=== PATIENT | male | born 1955 | race Caucasian/White ===

== ENCOUNTER 2021-02-27 16:32 | Outpatient (CLI) | payer MEDICARE, OTHER | END 2021-02-27 16:33 | disposition home or self-care (01) | LOC: RAD 16:32 | DX: K51.813 Other ulcerative colitis with fistula (principal); K60.3 Anal fistula | CPT/HCPCS: 36415; 71046; 86480; 86704; 86803; 87340 ==

== ENCOUNTER 2023-04-28 08:59 | Outpatient (CLI) | payer MEDICARE, OTHER ==
[2023-04-28] MEDS ORDERED: Iopamidol 370 76% 100 ML VIAL ONE (11:11)
== END 2023-04-28 09:00 | disposition home or self-care (01) ==
LOC: CT 08:59
PROVIDERS: ATTEND Surgery
DX: D16.9 Benign neoplasm of bone and articular cartilage, unspecified (principal); K59.00 Constipation, unspecified; M41.9 Scoliosis, unspecified; K62.89 Other specified diseases of anus and rectum; M47.9 Spondylosis, unspecified
CPT/HCPCS: 71260; 74177; 82565; Q9967

== ENCOUNTER 2025-03-09 07:47 | Inpatient (IN) | payer MEDICARE, OTHER ==
[2025-03-09 08:35] LABS: #Basophils Less than 0.03 10x3/uL (0.0-0.2); #Eosinophils Less than 0.03 10x3/uL (0.0-0.7); #Monocytes 0.35 10x3/uL (0.11-0.59); #Neutrophils 5.42 10x3/uL (1.40-6.50); %Basophils 0.3 % (0.0-1.0); %Eosinophils 0.0 % (0.0-10.0); %Lymphocytes 5.3 % (21.0-51.0); %Monocytes 5.7 % (0.0-10.0); %Neutrophils 87.7 % (42.0-75.0); Hematocrit 44.1 % (42.0-52.0); Hemoglobin 15.1 g/dL (14.0-18.0); Mean Corpuscular Hemoglobin 29.6 pg (27.0-31.0); Mean Corpuscular Volume 86.5 fL (78.0-98.0); Platelet Count 72 10x3/uL (130-400); Red Blood Cell (RBC) Count 5.10 mill/uL (4.70-6.10); White Blood Cell (WBC) Count 6.18 10x3/uL (4.8-10.8)
[2025-03-09 08:46] LABS: ALT (SGPT) 34 U/L (Less than 45); AST (SGOT) 52 U/L (11-34); Albumin 3.0 g/dL (3.1-4.5); Alkaline Phosphatase 99 U/L (40-110); Anion Gap 15 mmol/L (10-20); BUN (Urea Nitrogen) 15 mg/dL (8.4-25.7); Bilirubin, Total 1.2 mg/dL (0.3-1.2); Calc. Creatinine Clearance 0 mL/min (70-130); Calcium 8.8 mg/dL (7.8-10.44); Carbon Dioxide 24 mmol/L (23-31); Chloride 99 mmol/L (98-107); Globulin 3.7 g/dL (2.4-3.5); Glucose 125 mg/dL (83-110); Magnesium 1.9 mg/dL (1.6-2.6); Potassium 4.3 mmol/L (3.5-5.1); Sodium 134 mmol/L (136-145)
[2025-03-09] MEDS ORDERED: Ondansetron PF 4 MG/2 ML Vial ONE (08:46)
[2025-03-09] MEDS ORDERED: Cefepime 2 GM VIAL ONE (08:47)
[2025-03-09] MEDS ORDERED: Aspirin Chewable 81 MG TAB ONE (08:47)
[2025-03-09] MEDS ORDERED: Acetaminophen 500 MG TAB ONE ×2 (09:17)
[2025-03-09 09:40] LABS: Anisocytosis SLIGHT = 6-15 cells HPF (0-5); Burr Cells SLIGHT = 2-5 cells HPF (0-1); Macrocytosis SLIGHT = 6-15 cells HPF (0-5); Platelet Adequacy Comment Platelets Decreased; Poikilocytosis MARKED = >30 cells HPF (0-5); Polychromasia SLIGHT = 2-3 cells HPF (0-2); Schistocytes SLIGHT = 2-5 cells HPF (0-1); Stomatocytes SLIGHT = 2-5 cells HPF (0-1)
[2025-03-09] MEDS ORDERED: Ondansetron PF 4 MG/2 ML Vial IVP PRN (10:49)
[2025-03-09] MEDS ORDERED: Acetaminophen 325 MG TAB PO PRN (10:49)
[2025-03-09 12:31] VITALS: BMI 23.3
[2025-03-09] MEDS ORDERED: Iopamidol-370 76% 500 ML MDV (1 ML CHARGE) ONE (13:11)
[2025-03-09] MEDS: VANCOMYCIN 1.75 GM/350 ML Premix BAG IVPB SCH (13:13)
[2025-03-09] MEDS: Vancomycin 1 GM in Premix 1 BAG IVPB SCH (20:22)
[2025-03-10 06:53] LABS: Vancomycin, Random 8.8 ug/mL (See Comment)
[2025-03-10 06:58] LABS: #Basophils Less than 0.03 10x3/uL (0.0-0.2); #Eosinophils Less than 0.03 10x3/uL (0.0-0.7); #Monocytes 0.51 10x3/uL (0.11-0.59); #Neutrophils 4.91 10x3/uL (1.40-6.50); %Basophils 0.2 % (0.0-1.0); %Eosinophils 0.2 % (0.0-10.0); %Lymphocytes 9.0 % (21.0-51.0); %Monocytes 8.5 % (0.0-10.0); %Neutrophils 81.6 % (42.0-75.0); Hematocrit 39.5 % (42.0-52.0); Hemoglobin 13.4 g/dL (14.0-18.0); Mean Corpuscular Hemoglobin 29.8 pg (27.0-31.0); Mean Corpuscular Volume 88.0 fL (78.0-98.0); Platelet Count 87 10x3/uL (130-400); Red Blood Cell (RBC) Count 4.49 mill/uL (4.70-6.10); White Blood Cell (WBC) Count 6.01 10x3/uL (4.8-10.8)
[2025-03-10 10:38] VITALS: BMI 23.3
[2025-03-10 12:54] LABS: #Basophils Less than 0.03 10x3/uL (0.0-0.2); #Eosinophils Less than 0.03 10x3/uL (0.0-0.7); #Monocytes 0.53 10x3/uL (0.11-0.59); #Neutrophils 4.51 10x3/uL (1.40-6.50); %Basophils 0.2 % (0.0-1.0); %Eosinophils 0.2 % (0.0-10.0); %Lymphocytes 8.9 % (21.0-51.0); %Monocytes 9.5 % (0.0-10.0); %Neutrophils 80.5 % (42.0-75.0); Hematocrit 38.5 % (42.0-52.0); Hemoglobin 13.0 g/dL (14.0-18.0); Mean Corpuscular Hemoglobin 29.9 pg (27.0-31.0); Mean Corpuscular Volume 88.5 fL (78.0-98.0); Platelet Count 96 10x3/uL (130-400); Red Blood Cell (RBC) Count 4.35 mill/uL (4.70-6.10); White Blood Cell (WBC) Count 5.60 10x3/uL (4.8-10.8)
[2025-03-10 13:06] LABS: Anion Gap 18 mmol/L (10-20); BUN (Urea Nitrogen) 12 mg/dL (8.4-25.7); Calc. Creatinine Clearance 87 mL/min (70-130); Calcium 8.5 mg/dL (7.8-10.44); Carbon Dioxide 25 mmol/L (23-31); Chloride 100 mmol/L (98-107); Glucose 106 mg/dL (83-110); Potassium 3.4 mmol/L (3.5-5.1); Sodium 140 mmol/L (136-145)
[2025-03-11] MEDS: Benzonatate 100 MG CAP PO PRN (02:25)
[2025-03-11 06:24] LABS: Hematocrit 38.6 % (42.0-52.0); Hemoglobin 12.9 g/dL (14.0-18.0); Mean Corpuscular Hemoglobin 29.6 pg (27.0-31.0); Mean Corpuscular Volume 88.5 fL (78.0-98.0); Platelet Count 121 10x3/uL (130-400); Red Blood Cell (RBC) Count 4.36 mill/uL (4.70-6.10); White Blood Cell (WBC) Count 5.44 10x3/uL (4.8-10.8)
[2025-03-11 06:39] LABS: Vancomycin, Random 3.6 ug/mL (See Comment)
[2025-03-11 06:40] LABS: Anion Gap 7 mmol/L (10-20); BUN (Urea Nitrogen) 7 mg/dL (8.4-25.7); Calc. Creatinine Clearance 88 mL/min (70-130); Calcium 8.3 mg/dL (7.8-10.44); Carbon Dioxide 24 mmol/L (23-31); Chloride 105 mmol/L (98-107); Glucose 92 mg/dL (83-110); Potassium 3.4 mmol/L (3.5-5.1); Sodium 133 mmol/L (136-145)
[2025-03-11 06:53] LABS: Platelet Adequacy Comment Platelets Decreased
[2025-03-11] MEDS: VANCOMYCIN 1.75 GM/350 ML BAG 1.75 GM in Premix 1 BAG IVPB SCH (08:34)
[2025-03-11 14:04] VITALS: BP 124/86; TEMP 97.9
== END 2025-03-11 14:11 | disposition home or self-care (01) | DRG 194 ==
LOC: ERS 07:47 → OBSVTOIN 11:25 → 2NO 11:25 → T4-B 16:46 → INTOOBSV 03-10 10:12 → OBSVTOIN 03-10 10:12
PROVIDERS: ADMIT Internal Medicine; ATTEND Internal Medicine
DX: J18.9 Pneumonia, unspecified organism (principal); E87.20 Acidosis, unspecified; E86.0 Dehydration; K75.4 Autoimmune hepatitis; D69.59 Other secondary thrombocytopenia; Z98.890 Other specified postprocedural states; Z91.040 Latex allergy status; Z88.0 Allergy status to penicillin
CPT/HCPCS: 36415; 71275; 80048; 80053; 80202; 83605; 83735; 83880; 84484; 85025; 87040; 87077; 87149; 93005; 94640; 96374; 96375; 96376; G0378; J0692; J2405; J3373; J3375; J7030; Q9967